=== PATIENT | female | born 1965 | race Caucasian/White ===

== ENCOUNTER 2022-08-21 21:36 | Emergency (ER) | payer OTHER ==
[2022-08-21 21:43] VITALS: BP 106/71; PULSE 82; RESP 20; TEMP 97.7; BMI 27.8
[2022-08-21] MEDS ORDERED: diazePAM 2 MG TABLET PO ONE (22:48)
[2022-08-21] MEDS ORDERED: KETOROLAC TROMETHAMINE 30 MG/1 ML VIAL IM ONE (22:50)
[2022-08-21] MEDS ORDERED: diazePAM 2 MG TABLET ONE (22:52)
[2022-08-21] MEDS ORDERED: KETOROLAC TROMETHAMINE 30 MG/1 ML VIAL ONE (22:53)
== END 2022-08-22 | disposition home or self-care (01) ==
LOC: JERFT 21:36 → JER 21:36 → JERFT 08-22
PROC: 3E0233Z Introduction of Anti-inflammatory into Muscle, Percutaneous Approach (ICD-10-PCS; principal; 2022-08-21)
DX: M79.604 Pain in right leg (principal); M54.50 Low back pain, unspecified
CPT/HCPCS: 72100-TC-FY; 72170-TC-FY; 73502-TC-RT-FY; 99284-25